=== PATIENT | male | born 1955 | race Caucasian/White ===

== ENCOUNTER 2017-05-27 06:27 | Day surgery (SDC) | payer OTHER ==
[~2017-05-27] VITALS: Ht 182.9 cm; Wt 89.8 kg
[2017-05-27] MEDS ORDERED: ROSU10TA PO (07:39)
[2017-05-27] MEDS ORDERED: KETOROLAC 30 MG/ML VIAL ONE (09:05)
[2017-05-27] MEDS ORDERED: LIDOCAINE 2% 100 MG/5 ML UJET TP ONE (09:05)
== END 2017-05-27 09:55 | disposition home or self-care (01) ==
LOC: MMU 06:27 → MDS 06:27
PROVIDERS: ATTEND Internal Medicine Gastroenterology
DX: Z12.11 Encounter for screening for malignant neoplasm of colon (principal); D12.3 Benign neoplasm of transverse colon; K64.8 Other hemorrhoids; E78.5 Hyperlipidemia, unspecified
CPT/HCPCS: 45385; J1885